=== PATIENT | male | born 2000 | race Caucasian/White ===

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

== ENCOUNTER → 2018-01-07 | Outpatient (CLI) | payer OTHER ==
[2018-01-07 18:07] LABS: ALBUMIN 4.7 GM/DL (3.2-5.2); ALBUMIN/GLOBULIN RATIO 1.18 (1.00-1.93); ALKALINE PHOSPHATASE 267 U/L (45-117); ALT/SGPT 555 U/L (12-78); AST/SGOT 375 U/L (7-37); BILIRUBIN,DIRECT 0.5 MG/DL (0.0-0.2); BILIRUBIN,TOTAL 2.5 MG/DL (0.2-1.0); TOTAL PROTEIN 8.7 GM/DL (6.4-8.2)
== END ==
LOC: M WUC 12:33
DX: B17.9 Acute viral hepatitis, unspecified (principal)
CPT/HCPCS: 80076

== ENCOUNTER → 2018-01-11 | Outpatient (CLI) | payer OTHER ==
[2018-01-11 12:09] LABS: INR 0.98; PARTIAL THROMBOPLASTIN TIME 26.5 SECONDS (25.4-37.6); PROTHROMBIN TIME 13.1 SECONDS (12.1-14.4)
[2018-01-11 12:52] LABS: AMMONIA 54 uMOL/L (<32)
[2018-01-11 22:13] LABS: ALBUMIN 4.2 GM/DL (3.2-5.2); ALKALINE PHOSPHATASE 247 U/L (45-117); ALT/SGPT 214 U/L (12-78); AST/SGOT 58 U/L (7-37); BILIRUBIN,DIRECT 0.3 MG/DL (0.0-0.2); BILIRUBIN,TOTAL 1.4 MG/DL (0.2-1.0); TOTAL PROTEIN 8.1 GM/DL (6.4-8.2)
[2018-01-11 23:30] LABS: ALBUMIN/GLOBULIN RATIO 1.08 (1.00-1.93)
== END ==
LOC: M LAB 11:36
DX: K75.4 Autoimmune hepatitis (principal)
CPT/HCPCS: 82140

== ENCOUNTER → 2018-01-19 | Outpatient (CLI) | payer OTHER ==
[2018-01-19 08:13] LABS: ALBUMIN 4.1 GM/DL (3.2-5.2); ALBUMIN/GLOBULIN RATIO 1.17 (1.00-1.93); ALKALINE PHOSPHATASE 178 U/L (45-117); ALT/SGPT 59 U/L (12-78); AST/SGOT 20 U/L (7-37); BILIRUBIN,DIRECT 0.3 MG/DL (0.0-0.2); BILIRUBIN,TOTAL 1.8 MG/DL (0.2-1.0); CHOLESTEROL LEVEL 169 MG/DL (<200); CHOLESTEROL RISK RATIO 3.673 (<5); HDL CHOLESTEROL 46 MG/DL (>40); IRON (FE) 93 UG/DL (65-175); NON-HDL-C 123 MG/DL; PERCENT SATURATION 23.8 % (19.7-50.0); TOTAL IRON BINDING CAPACITY 390 UG/DL (250-450); TOTAL PROTEIN 7.6 GM/DL (6.4-8.2); TRIGLYCERIDES LEVEL 433 MG/DL (<150)
[2018-01-20 10:37] LABS: HEPATITIS B SURFACE ANTIBODY NEGATIVE (POSITIVE)
[2018-01-22 00:07] LABS: ALPHA 1 ANTITRYPSIN 103 mg/dL (90-200); ANA (HEP2) Positive (.); ANTI-MITOCHONDRIAL ANTIBODY 49.2 Units (0.0-20.0); HEPATITIS A IgG TOTAL Positive (Negative); LIVER-KIDNEY MICROSOMAL ABY 0.8 Units (0.0-20.0)
[2018-01-22 00:07] LABS: ANTI-SMOOTH MUSCLE ANTIBODY 6 Units (0-19)
== END ==
LOC: M LAB 06:50
DX: R94.5 Abnormal results of liver function studies (principal)
CPT/HCPCS: 83010

== ENCOUNTER → 2018-02-11 | Outpatient (CLI) | payer OTHER ==
[~2018-02-11] MED LIST: LIDOCAINE 1% MDV 20ML VIAL As Ordered
== END ==
LOC: M RADPRO 09:19
DX: D13.4 Benign neoplasm of liver (principal); R94.5 Abnormal results of liver function studies; K85.90 Acute pancreatitis without necrosis or infection, unspecified; E78.1 Pure hyperglyceridemia; E11.9 Type 2 diabetes mellitus without complications; J45.909 Unspecified asthma, uncomplicated; K21.9 Gastro-esophageal reflux disease without esophagitis; F17.210 Nicotine dependence, cigarettes, uncomplicated; Z79.4 Long term (current) use of insulin; Z91.013 Allergy to seafood; Z88.8 Allergy status to other drugs, medicaments and biological substances; Z87.19 Personal history of other diseases of the digestive system
CPT/HCPCS: 47000

== ENCOUNTER → 2018-03-17 | Outpatient (CLI) | payer OTHER ==
[2018-03-17 18:07] LABS: ALT/SGPT 38 U/L (12-78); AST/SGOT 19 U/L (7-37)
[2018-03-17 18:08] LABS: ALBUMIN 3.9 GM/DL (3.2-5.2); ALBUMIN/GLOBULIN RATIO 1.08 (1.00-1.93); ALKALINE PHOSPHATASE 123 U/L (45-117); BILIRUBIN,DIRECT 0.3 MG/DL (0.0-0.2); BILIRUBIN,TOTAL 1.3 MG/DL (0.2-1.0); CHOLESTEROL LEVEL 192 MG/DL (<200); CHOLESTEROL RISK RATIO 4.363 (<5); HDL CHOLESTEROL 44 MG/DL (>40); LDL CHOLESTEROL 97 MG/DL (<100); NON-HDL-C 148 MG/DL; TOTAL PROTEIN 7.5 GM/DL (6.4-8.2); TRIGLYCERIDES LEVEL 257 MG/DL (<150)
== END ==
LOC: M WUC 15:04
DX: E78.5 Hyperlipidemia, unspecified (principal); B19.9 Unspecified viral hepatitis without hepatic coma
CPT/HCPCS: 80076

== ENCOUNTER → 2018-07-04 | Outpatient (CLI) | payer BC ==
[~2018-07-04] MED LIST changes: +ARTI99.0 OU; +INSUDET SC; +INSUH10VL SC; +INSULANT SC; -LIDOCAINE 1% MDV 20ML VIAL As Ordered; +TYLE500T78 PO; +VITMTA PO
[2018-07-04 22:19] LABS: INR 0.95; PROTHROMBIN TIME 12.8 SECONDS (12.1-14.4)
[2018-07-04 22:20] LABS: PARTIAL THROMBOPLASTIN TIME 24.7 SECONDS (25.4-37.6)
[2018-07-04 22:27] LABS: ALBUMIN 3.9 GM/DL (3.2-5.2); ALT/SGPT 39 U/L (12-78); BILIRUBIN,DIRECT 0.3 MG/DL (0.0-0.2); BLOOD UREA NITROGEN 13 MG/DL (7-18); CALCIUM LEVEL 8.9 MG/DL (8.5-10.1); CARBON DIOXIDE LEVEL 23 MEQ/L (21-32); CHLORIDE LEVEL 99 MEQ/L (98-107); GLUCOSE, FASTING 347 MG/DL (70-100); POTASSIUM SERUM 4.7 MEQ/L (3.5-5.1); SODIUM LEVEL 135 MEQ/L (136-145); TOTAL PROTEIN 7.6 GM/DL (6.4-8.2)
== END ==
LOC: M LAB 21:27
DX: Z00.00 Encounter for general adult medical examination without abnormal findings (principal)

== ENCOUNTER 2019-06-01 01:01 | Emergency (ER) | payer BC ==
[~2019-06-01] VITALS: Ht 188 cm; Wt 77.3 kg
[~2019-06-01 01:01] MED LIST changes: -ARTI99.0 OU; +ARTIDRO2 OU
[2019-06-01] MEDS ORDERED: NS 1,000 ML IV ONE ×3 (01:15→03:15)
[2019-06-01] MEDS ORDERED: INSULANT (01:23)
[2019-06-01 01:39] LABS: BASO % 0.2 % (0.0-1.0); EOS % 0.2 % (0.0-3.0); HEMATOCRIT 48.5 % (42.0-52.0); HEMOGLOBIN 15.9 g/dl (13.5-17.5); LYMPH # 1.9 10^3/uL (1.5-5.0); LYMPH % 20.8 % (24.0-44.0); MEAN CORPUSCULAR HEMOGLOBIN 29.4 pg (27.0-33.0); MEAN CORPUSCULAR HGB CONC 32.8 g/dl (32.0-36.5); MEAN CORPUSCULAR VOLUME 89.8 fl (80.0-96.0); MONO # 0.4 10^3/uL (0.0-0.8); MONO % 4.7 % (0.0-5.0); NEUTROPHILS # 6.7 10^3/uL (1.5-8.5); NEUTROPHILS % 73.8 % (36.0-66.0); PLATELET COUNT, AUTOMATED 355 10^3/uL (150-450); WHITE BLOOD COUNT 9.1 10^3/uL (4.0-10.0)
[2019-06-01 01:52] LABS: BLOOD UREA NITROGEN 22 MG/DL (7-18); CALCIUM LEVEL 9.4 MG/DL (8.5-10.1); CARBON DIOXIDE LEVEL 21 MEQ/L (21-32); CHLORIDE LEVEL 89 MEQ/L (98-107); CREATININE FOR GFR 1.54 MG/DL (0.70-1.30); GLOMERULAR FILTRATION RATE > 60.0 (>60); GLUCOSE, FASTING 791 MG/DL (70-100); POTASSIUM SERUM 4.7 MEQ/L (3.5-5.1); SODIUM LEVEL 125 MEQ/L (136-145)
[2019-06-01] MEDS ORDERED: HumuLIN R (REGULAR) INSULIN (NovoLIN R) **100U/ML** PER UNIT IV ONE ×2 (02:15→03:00)
[2019-06-01 03:45] VITALS: BP 118/67
== END 2019-06-01 04:04 | disposition home or self-care (01) ==
LOC: M ED 01:01
DX: E11.65 Type 2 diabetes mellitus with hyperglycemia (principal); Z79.4 Long term (current) use of insulin; Z91.013 Allergy to seafood